=== PATIENT | female | born 1955 | race Caucasian/White ===

== ENCOUNTER 2019-09-03 08:36 | Emergency (ER) | payer MEDICARE ==
[2019-09-03 08:51] VITALS: BP 172/71
--- NOTE | 2019-09-03 08:54 | UC ---
Complaint Female HPI - HPI Summary HPI Summary: Patient is a 64yo female presenting with "raging UTI" since last night. Notes urinary frequency, urgency, hematuria, and dysuria. Notes lower abdominal pressure. Denies flank pain. Denies n/v. Denies fever and chills. Denies taking anything for symptom relief but states increased fluid intake helping some. - History Of Current Complaint Chief Complaint: UCGU Stated Complaint: URINARY Hx Obtained From: Patient Pain Intensity: 0 - Allergies/Home Medications Allergies/Adverse Reactions: Allergies Allergy/AdvReac Type Severity Reaction Status Date / Time No Known Allergies Allergy Verified 09/03/19 08:46 Home Medications: Home Medications Aspirin EC TAB* [Ecotrin EC Low Dose 81 MG*] 81 mg PO QPM 09/03/19 [History Confirmed 09/03/19] Hydrochlorothiazide TAB* [Hydrodiuril TAB*] 25 mg PO QAM 09/03/19 [History Confirmed 09/03/19] Irbesartan 300 mg PO QPM 09/03/19 [History Confirmed 09/03/19] Nebivolol (NF) [Bystolic (NF)] 10 mg PO QPM 09/03/19 [History Confirmed 09/03/19 ] amLODIPine TAB* [Norvasc 5 mg TAB*] 5 mg PO QPM 09/03/19 [History Confirmed ] PMH/Surg Hx/FS Hx/Imm Hx Cardiovascular History: Hypertension - Social History Alcohol Use: None Substance Use Type: None Smoking Status (MU): Former Smoker Length of Time of Smoking/Using Tobacco: 1 PPD x 20 Years When Did the Patient Quit Smoking/Using Tobacco: ~1994 Review of Systems All Other Systems Reviewed And Are Negative: Yes Constitutional: Positive: Negative Respiratory: Positive: Negative Cardiovascular: Positive: Negative Gastrointestinal: Positive: Abdominal Pain - lower abdominal pressure. Negative : Vomiting, Nausea Genitourinary: Positive: Dysuria, Hematuria, Frequency, Urgency Musculoskeletal: Positive: Negative Physical Exam - Summary Physical Exam Summary: Vital Signs Reviewed: Yes A+Ox3, no distress Eyes: Conjunctiva Clear ENT: Hearing grossly normal Neck: Positive: Supple Respiratory: Positive: No respiratory distress, No accessory muscle use + CTA throughout no w/r Cardiovascular: RRR nl s1, s2 no m/r CBT <2 sec Abd: soft nt/nd no guarding, no CVA tenderness Musculoskeletal Exam: HOWE x 4 without difficulty Neurological: Positive: Alert Psychological: Positive: age appropriate behavior Skin: Positive: no rash, no ecchymosis Vital Signs: Initial Vital Signs Temp 98.2 F 09/03/19 08:44 Pulse 76 09/03/19 08:44 Resp 16 09/03/19 08:44 BP 172/71 09/03/19 08:44 Pulse Ox 99 09/03/19 08:44 Lab Results 09/03/19 Range/Units 08:58 POC Urine Color [place] POC Urine Clarity Clear POC Urine pH 7.5 (5-9) POC Ur Specif [place] 1.010 (1.010-1.030) POC Urine Protein 2+ A (Negative) POC Ur Glucose (UA) Negative (Negative) POC Urine Ketones Negative (Negative) POC Urine Blood 3+ A (Negative) POC Urine Nitrite Negative (Negative) POC Urine Bilirubin Negative (Negative) POC Urine Urobilinogen 0.2 (Negative) POC U Leukocyte Esteras 3+ A (Negative) Complaint Female Dx - Course Course Of Treatment: UA positive 3+leuks, 3+blood, and 2+ protein. I treated patient with macrobid and instructed to take Azo for symptom relief. Instructed to return or follow up with pcp if symptoms worsening or not resolving within 1-2 days. Patient voiced understanding and agreed with treatment plan. - Differential Dx/Diagnosis Provider Diagnosis: UTI (urinary tract infection) Discharge ED - Sign-Out/Discharge Documenting (check all that apply): Patient Departure All imaging exams completed and their final reports reviewed: No Studies - Discharge Plan Condition: Stable Disposition: HOME Prescriptions: Nitrofurantoin Monohyd/M-Cryst [Macrobid 100 mg Capsule] 100 mg PO BID #10 cap Patient Education Materials: Urinary Tract Infection in Women (ED) Referrals: Ernestina Prince PA [Primary Care Provider] - If Needed Additional Instructions: Take Macrobid for treatment of your UTI. You may also take Azo over the counter as needed for symptomatic relief. Increase your fluid intake. Follow up with your PCP if symptoms do not resolve. Return or go to emergency room with any new or worsening symptoms. - Billing Disposition and Condition Condition: STABLE Disposition: Home
== END 2019-09-03 09:12 | disposition home or self-care (01) ==
LOC: UCCORT 08:36
DX: N39.0 Urinary tract infection, site not specified (principal); I10 Essential (primary) hypertension; R31.9 Hematuria, unspecified; Z79.899 Other long term (current) drug therapy; Z79.82 Long term (current) use of aspirin; Z87.891 Personal history of nicotine dependence
CPT/HCPCS: 81003; 87086; 99212; G0463